=== PATIENT | female | born 1970 | race Caucasian/White ===

== ENCOUNTER 2019-11-16 21:10 | Emergency (ER) | payer OTHER ==
[~2019-11-16] VITALS: Ht 160 cm; Wt 62.6 kg
[2019-11-16 21:20] VITALS: BP_SYST 98
--- NOTE | 2019-11-16 21:30 | NUR ---
Patient to ER bed 08 to gown for evaluation. Side rails up.
--- NOTE | 2019-11-16 21:32 | NUR ---
Patient AOx4, brought to ED via ambulance from [facility]. Patient states she was diagnosed with seizures when she was 9 years old. No report of injury. Patient states "I do not know why I am here, I have seizures all the time. I take Keppra and Dilantin for seizures". Patient reports no symptoms or complaints.
--- NOTE | 2019-11-16 21:35 | NUR ---
ER MD Bass at bedside for medical evaluation.
--- NOTE | 2019-11-16 22:12 | NUR ---
# 22 gauge angiocath placed to right hand. Use of asceptic technique. Opsite placed over site. Blood return noted. Flushed with 10 cc of normal saline. No evidence of infiltration noted. Patient tolerated well.
[2019-11-16 23:18] LABS: BASOPHILS % (AUTO) 0.5 % (0.0-2.0); EOSINOPHILS % (AUTO) 0.5 % (0.0-4.0); HEMATOCRIT 35.7 % (36-48); HEMOGLOBIN 12.4 g/dL (12.0-16.0); LYMPHOCYTES # (AUTO) 3.4 K/uL (1.0-5.5); LYMPHOCYTES % (AUTO) 37.6 % (20.5-51.5); MEAN CORPUSCULAR HEMOGLOBIN 34 pg (27-31); MEAN CORPUSCULAR HGB CONC 35 % (32-36); MEAN CORPUSCULAR VOLUME 98 fL (79.0-98.0); MONOCYTES # (AUTO) 0.7 K/uL (0.0-1.0); MONOCYTES % (AUTO) 8.1 % (1.7-9.3); NEUTROPHILS # (AUTO) 4.8 K/uL (1.8-7.7); NEUTROPHILS % (AUTO) 53.3 % (40.0-70.0); PLATELET COUNT (AUTO) 227 K/uL (130-430); RED BLOOD CELL COUNT(AUTO) 3.65 MIL/uL (4.2-6.2); RED CELL DISTRIBUTION WIDTH 12.9 % (9.0-15.0); WHITE BLOOD COUNT (AUTO) 9.1 K/uL (4.8-10.8)
[2019-11-16 23:29] LABS: ANION GAP 6 (5-15); CALCIUM 8.5 mg/dL (8.4-11.0); CHLORIDE 106 mmol/L (98-107); CREATININE 0.47 mg/dL (0.55-1.30); GLUCOSE 90 mg/dL (70-99); POTASSIUM 4.1 mmol/L (3.5-5.1); SODIUM SERUM 139 mmol/L (136-145); UREA NITROGEN, BLOOD 20 mg/dL (8-21)
[2019-11-16 23:35] LABS: ALANINE AMINOTRANSFERASE 20 U/L (12-78); ALBUMIN 3.3 g/dL (3.4-4.8); ASPARTATE AMINOTRANSFERASE 13 U/L (10-37); TOTAL BILIRUBIN 0.2 mg/dL (0.0-1.0)
[2019-11-16 23:36] LABS: GFR AFRICAN AMERICAN 181 mL/min (>90)
[2019-11-16 23:41] LABS: BARBITURATE, URINE NEGATIVE (NEG <=200); BENZODIAZEPINE, URINE NEGATIVE (NEG <=150); CANNABINOID, URINE POSITIVE (NEG <=50); COCAINE, URINE NEGATIVE (NEG <=150); METHAMPHETAMINES SCREEN,URINE NEGATIVE (NEG <=500); OPIATE, URINE NEGATIVE (NEG <=100); PHENCYCLIDINE SCREEN,URINE NEGATIVE (NEG <=25); UR TRICYCLIC ANTIDEPRESSANTS NEGATIVE (NEG <=300); URINE AMPHETAMINE NEGATIVE (NEG <=500); URINE METHADONE NEGATIVE (NEG <=200); URINE OXYCODONE SCREEN NEGATIVE (NEG <=100); URINE PROPOXYPHENE SCREEN NEGATIVE (NEG <=300)
[2019-11-16 23:42] LABS: ACETAMINOPHEN < 1 ug/mL (1-30); ALCOHOL, BLOOD < 3 mg/dL (<10)
[2019-11-17 00:28] VITALS: BP_SYST 108
--- NOTE | 2019-11-17 00:28 | NUR ---
Patient given written and verbal discharge instructions and verbalizes understanding. ER MD discussed with patient the results and treatment provided. Patient in stable condition. ID arm band removed. IV catheter removed intact and dressing applied, no active bleeding. No Rx given. Patient educated on pain management and to follow up with PMD. Pain Scale 0/10. Opportunity for questions provided and answered.
--- NOTE | 2019-11-17 00:31 | NUR ---
Spoke to Aaliyah at [facility]. Transport ETA to facility 30 minutes.
== END 2019-11-17 00:28 | disposition home or self-care (01) ==
LOC: SED 21:10
DX: R56.9 Unspecified convulsions (principal); F17.200 Nicotine dependence, unspecified, uncomplicated; Z02.89 Encounter for other administrative examinations
CPT/HCPCS: 36415; 80053; 80307; 85025; 93005; 99284; G0480; G0481; G0482